=== PATIENT | female | born 1955 | race Caucasian/White ===

== ENCOUNTER 2017-03-13 00:35 | Observation (INO) | payer MEDICAID, OTHER ==
--- NOTE | 2017-03-13 01:22 | ED PDOC ---
Arrival/HPI - General Chief Complaint: Syncope Time Seen by Provider: 03/13/17 01:15 Historian: Patient - History of Present Illness Narrative History of Present Illness (Text): 03/13/17 01:21 Hannah Hopson is a 61 year old female, whose past medical history includes hypertension, who presents to the ED brought in by EMS accompanied by family status post syncopal episode tonight. Patient states prior to arrival she went to bathroom, felt dizzy, and had a syncopal episode. Patient notes earlier tonight she felt nauseous with 1 episode of vomiting after eating shrimp for dinner. Patient complaining of headache currently. Patient denies any fever, chills, chest pain, shortness of breath, abdominal pain, diarrhea, urinary symptoms, back pain, neck pain, head trauma, or any other complaints. Time/Duration: Other (tonight) Symptom Onset: Gradual Activities at Onset: Rest, Light Context: Home Past Medical History - Provider Review Nursing Documentation Reviewed: Yes - Past History Past History: No Previous - Infectious Disease Hx of Infectious Diseases: None - Tetanus Immunization Tetanus Immunization: Unknown - Cardiac Hx Hypertension: Yes - Psychiatric Hx Depression: No Hx Emotional Abuse: No Hx Physical Abuse: No Hx Substance Use: No - Surgical History Hx Hysterectomy: Yes - Suicidal Assessment Feels Threatened In Home Enviroment: No Family/Social History - Physician Review Nursing Documentation Reviewed: Yes Family/Social History: No Known Family HX Smoking Status: n Hx Alcohol Use: No Hx Substance Use: No Hx Substance Use Treatment: No Allergies/Home Meds Allergies/Adverse Reactions: Allergies No Known Allergies Allergy (Verified 12/19/12 10:29) Home Medications: Home Meds Medication Instructions Recorded Confirmed hydroCHLOROthiazide [Microzide] 12.5 mg PO DAILY 12/19/12 03/13/17 Atorvastatin [Lipitor] 1 tab PO HS 03/13/17 03/13/17 Lisinopril [Zestril] 1 tab PO DAILY 03/13/17 03/13/17 Review of Systems - Physician Review All systems were reviewed & negative as marked: Yes - Review of Systems Constitutional: Normal. absent: Fevers Eyes: Normal ENT: Normal Respiratory: Normal. absent: SOB, Cough Cardiovascular: Syncope. absent: Chest Pain Gastrointestinal: Abdominal Pain, Nausea, Vomiting Genitourinary Female: Normal. absent: Dysuria, Frequency, Hematuria, Urine Output Changes Musculoskeletal: Normal. absent: Back Pain, Neck Pain Skin: Normal. absent: Rash Neurological: Dizziness. absent: Headache Endocrine: Normal Hemo/Lymphatic: Normal Psychiatric: Normal Physical Exam Vital Signs Reviewed: Yes Vital Signs Temp Pulse Resp BP Pulse Ox 03/13/17 01:07 97.3 F L 03/13/17 00:54 70 18 115/67 95 Temperature: Afebrile Blood Pressure: Normal Pulse: Regular Respiratory Rate: Normal Appearance: Positive for: Well-Appearing, Non-Toxic, Comfortable Pain Distress: None Mental Status: Positive for: Alert and Oriented X 3 - Systems Exam Head: Present: Atraumatic, Normocephalic Pupils: Present: PERRL Extroacular Muscles: Present: EOMI Conjunctiva: Present: Normal Mouth: Present: Moist Mucous Membranes Neck: Present: Normal Range of Motion Respiratory/Chest: Present: Clear to Auscultation, Good Air Exchange. No: Respiratory Distress, Accessory Muscle Use Cardiovascular: Present: Regular Rate and Rhythm, Normal S1, S2. No: Murmurs Abdomen: Present: Normal Bowel Sounds. No: Tenderness, Distention, Peritoneal Signs Back: Present: Normal Inspection Upper Extremity: Present: Normal Inspection. No: Cyanosis, Edema Lower Extremity: Present: Normal Inspection. No: Edema Neurological: Present: GCS=15, CN II-XII Intact, Speech Normal Skin: Present: Warm, Dry, Normal Color. No: Rashes Psychiatric: Present: Alert, Oriented x 3, Normal Insight, Normal Concentration Medical Decision Making ED Course and Treatment: 03/13/17 01:22 Impression: 61 y/o female presents s/p syncopal episode. Pt c/o dizziness, headache, nausea and vomiting. Differential Diagnosis included but are not limited to: syncope Plan: -- CT Head w/o contrast -- EKG -- CXR -- Labs, cardiac enzymes, lipase -- IV fluids -- Zofran -- Reassess and disposition Reviewed EKG, NSR at 74 bpm. Prolonged QT. Non-specific ST/T wave changes. 03/13/17 03:12 reviewed radiology, CXR shows: There is a retrocardiac opacity which may represent a large hiatal hernia. Other possibilities are not excluded. Correlation with prior examination recommended. CT Head shows: No evidence of acute intracranial hemorrhage. No midline shift or hydrocephalus.If symptoms persist, correlation with MRI is advised. 03/13/17 04:07 Case discussed with medical administrative specialist paraprofessional interpreter, who is aware and agrees with plan. House physician paged. 03/13/17 04:[address] Natasha Alvarado, who is aware and agrees with plan. Accepts pt in to hospitalist service. Pt will go to Telemetry observation for syncope. - Lab Interpretations Lab Results: 03/13/17 02:02 03/13/17 02:02 Lab Results 03/13/17 02:02: WBC 11.4 H, RBC 4.83, Hgb 14.6, Hct 44.0, MCV 91.1, MCH 30.2, MCHC 33.2, RDW 12.8, Plt Count 290, MPV 10.2 03/13/17 02:02: Sodium 140, Potassium 3.3 L, Chloride 102, Carbon Dioxide 26, Anion Gap 15, BUN 16, Creatinine 0.9, Est GFR ( Amer) > 60, Est GFR (Non- Af Amer) > 60, Random Glucose 166 H, Calcium 9.2, Total Bilirubin 0.5, AST 42 H , ALT 49, Alkaline Phosphatase 112, Lactate Dehydrogenase 525, Total Creatine Kinase 168, Troponin I 0.02, Total Protein 8.0, Albumin 4.3, Globulin 3.7, Albumin/Globulin Ratio 1.2, Lipase 249 03/13/17 02:02: PT 10.7, INR 0.99, APTT 24.2 I have reviewed the lab results: Yes - RAD Interpretation Narrative RAD Interpretations (Text): CXR shows: Lungs: There is a retrocardiac opacity which may represent a large hiatal hernia. Other possibilities are not excluded. Pleural space: Unremarkable. No pneumothorax. Heart: Unremarkable. No cardiomegaly. Mediastinum: Unremarkable. Bones/joints: Unremarkable. IMPRESSION: There is a retrocardiac opacity which may represent a large hiatal hernia. Other possibilities are not excluded. Correlation with prior examination recommended. CT Head shows: Brain: Unremarkable. No hemorrhage. No significant white matter disease. No edema. Ventricles: Unremarkable. No ventriculomegaly. Bones/joints: Unremarkable. No acute fracture. Soft tissues: Unremarkable. Sinuses: Unremarkable as visualized. No acute sinusitis. Mastoid air cells: Unremarkable as visualized. No mastoid effusion. IMPRESSION: No evidence of acute intracranial hemorrhage. No midline shift or hydrocephalus.If symptoms persist, correlation with MRI is advised. Radiology Orders: 03/13/17 01:24 HEAD W/O CONTRAST [CT] Stat CHEST PORTABLE [RAD] Stat Electric Screw Driver Operator: ED Physician, Radiologist - EKG Interpretation Interpreted by ED Physician: Yes Type: 12 lead EKG - Medication Orders Current Medication Orders: Discontinued Medications Sodium Chloride (Sodium Chloride 0.9%) 1,000 mls @ 999 mls/hr IV .Q1H1M STA Stop: 03/13/17 02:25 Last Admin: 03/13/17 03:16 Dose: 999 mls/hr Ondansetron HCl (Zofran Inj) 4 mg IVP ONCE ONE Stop: 03/13/17 01:26 Last Admin: 03/13/17 03:16 Dose: 4 mg - Scribe Statement The provider has reviewed the documentation as recorded by the Anjali Doshi Provider Attestation: All medical record entries made by the Anjali were at my direction and personally dictated by me. I have reviewed the chart and agree that the record accurately reflects my personal performance of the history, physical exam, medical decision making, and the department course for this patient. I have also personally directed, reviewed, and agree with the discharge instructions and disposition. Disposition/Present on Arrival - Present on Arrival Any Indicators Present on Arrival: No History of DVT/PE: No History of Uncontrolled Diabetes: No Urinary Catheter: No History of Decub. Ulcer: No History Surgical Site Infection Following: None - Disposition Have Diagnosis and Disposition been Completed?: Yes Diagnosis: Syncope Disposition: HOSPITALIZED Disposition Time: 04:29 Patient Plan: Observation Patient Problems: Current Active Problems Problem Status Onset Syncope Acute Condition: STABLE
[2017-03-13] MEDS ORDERED: Sodium Chloride 0.9% 1,000 ML IV STA (01:25)
[2017-03-13 02:18] LABS: MEAN CELL VOLUME 91.1 fL (80.0-105.0); MEAN CORPUSCULAR HEMOGLOBIN 30.2 pg (25.0-35.0); MEAN CORPUSCULAR HGB CONC 33.2 g/dl (31.0-37.0); MEAN PLATELET VOLUME 10.2 fl (7.0-11.0); RED CELL DISTRIBUTION WIDTH 12.8 % (11.5-14.5); WHITE BLOOD COUNT 11.4 10^3/ul (4.5-11.0)
[2017-03-13 02:25] LABS: INR 0.99 (0.93-1.08); PARTIAL THROMBOPLASTIN TIME 24.2 Seconds (23.7-30.8)
[2017-03-13 02:30] LABS: ALB/GLOB RATIO 1.2 (1.1-1.8); ALKALINE PHOSPHATASE 112 U/L (38-133); ALT/SGPT 49 U/L (7-56); AST/SGOT 42 U/L (15-39); BILIRUBIN,TOTAL 0.5 mg/dL (0.2-1.3); BLOOD UREA NITROGEN 16 mg/dL (7-21); CALCIUM 9.2 mg/dL (8.4-10.5); CARBON DIOXIDE 26 mmol/L (21-33); CHLORIDE 102 mmol/L (98-107); GFR AFRICAN-AMERICAN > 60; GLUCOSE,RANDOM 166 mg/dL (70-110); LIPASE 249 U/L (23-300); POTASSIUM 3.3 mmol/L (3.6-5.0); SODIUM 140 mmol/L (132-148)
[2017-03-13 02:40] LABS: TROPONIN I 0.02 ng/mL
[2017-03-13] MEDS ORDERED: Potassium Chloride 20 mEq ER Tab PO STA (05:23)
--- NOTE | 2017-03-13 05:32 | CP.PCM.HP ---
History of Present Illness - History of Present Illness History of Present Illness: 61 year old female with past medical history of hypertension presents to [facility] after having syncope at home. Patient reports today around 6pm she starting feeling dizziness as if the room was spinning and chest tightness. She went to the bathroom to have a bowel movement. The dizziness became worse after she stood up from the toilet trying to walk back to her bed. Patient returned to the toilet and syncoped while sitting. Patient's witnessed the episode and denies of any trauma or seizure like activities. Patient reports feeling nauseous after having shrimps and salmon at a restaurant. Patient denies having headache, weakness, fever, chills, shortness of breath, chest pain abdominal pain, nausea, vomiting, diarrhea, or urinary symptoms. Dr. Hawley PMHx: HTN PSHx: hysterectomy Allergy: NKDA Social Hx: admits to social alcohol use, denies tobacco or other drug use Family Hx: non contributory Meds: lisinopril, HCTZ, lipitor Present on Admission - Present on Admission Any Indicators Present on Admission: No History of DVT/PE: No History of Uncontrolled Diabetes: No Review of Systems - Constitutional Constitutional: As Per HPI. absent: Chills, Fever, Headache - EENT Eyes: As Per HPI. absent: Change in Vision, Loss of Vision Ears: As Per HPI, Dizziness Nose/Mouth/Throat: As Per HPI. absent: Nasal Trauma, Dysphagia - Cardiovascular Cardiovascular: As Per HPI, Syncope. absent: Chest Pain, Chest Pain at Rest, Chest Pain with Activity, Edema - Respiratory Respiratory: As Per HPI. absent: Cough, Dyspnea, Wheezing - Gastrointestinal Gastrointestinal: As Per HPI, Nausea. absent: Constipation, Loose Stools, Vomiting - Genitourinary Genitourinary: As Per HPI. absent: Urinary Frequency, Urinary Hesitance, Urinary Urgency - Musculoskeletal Musculoskeletal: As Per HPI. absent: Arthralgias, Myalgias - Integumentary Integumentary: As Per HPI. absent: Acne, Erythema, Hirsutism - Neurological Neurological: As Per HPI, Dizziness, Syncope. absent: Numbness, Tingling - Psychiatric Psychiatric: As Per HPI. absent: Confusion, Irritability - Endocrine Endocrine: As Per HPI - Hematologic/Lymphatic Hematologic: As Per HPI Past Patient History - Infectious Disease Hx of Infectious Diseases: None - Tetanus Immunizations Tetanus Immunization: Unknown - Past Social History Smoking Status: n - CARDIAC Hx Hypertension: Yes - PSYCHIATRIC Hx Depression: No Hx Emotional Abuse: No Hx Physical Abuse: No Hx Substance Use: No - SURGICAL HISTORY Hx Hysterectomy: Yes Meds Allergies/Adverse Reactions: Allergies Allergy/AdvReac Type Severity Reaction Status Date / Time No Known Allergies Allergy Verified 12/19/12 10:29 Physical Exam - Constitutional Appears: Non-toxic, No Acute Distress - Head Exam Head Exam: ATRAUMATIC, NORMAL INSPECTION, NORMOCEPHALIC - Eye Exam Eye Exam: EOMI, Normal appearance, PERRL - ENT Exam ENT Exam: Mucous Membranes Moist - Neck Exam Neck exam: Positive for: Normal Inspection - Respiratory Exam Respiratory Exam: Clear to Auscultation Bilateral, NORMAL BREATHING PATTERN. absent: Rhonchi, Wheezes, Respiratory Distress - Cardiovascular Exam Cardiovascular Exam: REGULAR RHYTHM, RRR, +S1, +S2 - GI/Abdominal Exam GI & Abdominal Exam: Normal Bowel Sounds, Soft. absent: Tenderness - Extremities Exam Extremities exam: Positive for: normal capillary refill, normal inspection, pedal pulses present. Negative for: pedal edema - Back Exam Back exam: NORMAL INSPECTION - Neurological Exam Neurological exam: Alert, Normal Gait, Oriented x3 - Psychiatric Exam Psychiatric exam: Normal Affect, Normal Mood - Skin Skin Exam: Dry, Intact, Normal Color, Warm Results - Vital Signs Recent Vital Signs: Last Vital Signs Temp 97.3 F L 03/13/17 01:07 Pulse 70 03/13/17 00:54 Resp 18 03/13/17 00:54 BP 115/67 03/13/17 00:54 Pulse Ox 95 03/13/17 00:54 - Labs Result Diagrams: 03/13/17 02:02 03/13/17 02:02 Labs: Laboratory Results - last 24 hr 03/13/17 03/13/17 03/13/17 02:02 02:02 02:02 WBC 11.4 H RBC 4.83 Hgb 14.6 Hct 44.0 MCV 91.1 MCH 30.2 MCHC 33.2 RDW 12.8 Plt Count 290 MPV 10.2 PT 10.7 INR 0.99 APTT 24.2 Sodium 140 Potassium 3.3 L Chloride 102 Carbon Dioxide 26 Anion Gap 15 BUN 16 Creatinine 0.9 Est GFR ( Amer) > 60 Est GFR (Non-Af Amer) > 60 Random Glucose 166 H Calcium 9.2 Total Bilirubin 0.5 AST 42 H ALT 49 Alkaline Phosphatase 112 Lactate Dehydrogenase 525 Total Creatine Kinase 168 Troponin I 0.02 Total Protein 8.0 Albumin 4.3 Globulin 3.7 Albumin/Globulin Ratio 1.2 Lipase 249 Assessment & Plan - Assessment and Plan (Free Text) Assessment: 61 year old female with past medical history of hypertension presents after having syncope at home Plan: Syncope -vasovagal vs cardiogenic etiology -Vitals and labs are unremarkable -Follow up orthostatic blood pressure -First troponin 0.02, repeats pending -CT Head showed no evidence of acute intracranial hemorrhage. No midline shift or hydrocephalus -EKG showed NSR at 74 bpm. Prolonged QT. Non-specific ST/T wave changes -Cardiology consult, Dr. Weller help appreciated Hiatal hernia -CXR: There is a retrocardiac opacity which may represent a large hiatal hernia. Other possibilities are not excluded. Correlation with prior examination recommended -GI consult, Dr. Joseph help appreciated Hypokalemia -Potassium 3.3 in the ED -Follow up AM Lab -Supplement as needed HTN -Resume home HCTZ and Lisinopril HLD -Resume lipitor Prophylactic measures -Protonix -SCD -Zofran
--- NOTE | 2017-03-13 06:33 | CT ---
PROCEDURE: CT HEAD WITHOUT CONTRAST. HISTORY: syncope COMPARISON: None available. TECHNIQUE: Axial computed tomography images were obtained through the head/brain without intravenous contrast. Radiation dose: Total exam DLP = 722.11 mGy-cm. This CT exam was performed using one or more of the following dose reduction techniques: Automated exposure control, adjustment of the mA and/or kV according to patient size, and/or use of iterative reconstruction technique. FINDINGS: HEMORRHAGE: No intracranial hemorrhage. BRAIN: No mass effect or edema. Mild chronic periventricular white matter microvascular ischemic changes. VENTRICLES: Unremarkable. No hydrocephalus. CALVARIUM: Unremarkable. PARANASAL SINUSES: Unremarkable as visualized. No significant inflammatory changes. MASTOID AIR CELLS: Unremarkable as visualized. No inflammatory changes. OTHER FINDINGS: None. IMPRESSION: Mild chronic periventricular white matter microvascular ischemic changes.
--- NOTE | 2017-03-13 06:55 | RAD ---
HISTORY: syncope COMPARISON: 04/30/2014 FINDINGS: LUNGS: Mild right basilar atelectasis and mild elevation right hemidiaphragm PLEURA: No significant pleural effusion identified, no pneumothorax apparent. CARDIOVASCULAR: Normal. OSSEOUS STRUCTURES: No significant abnormalities. VISUALIZED UPPER ABDOMEN: OTHER FINDINGS: Small to medium size hiatal hernia IMPRESSION: Mild right basilar atelectasis with mild elevation right hemidiaphragm ; rule out eventration Small to medium size hiatal hernia
[2017-03-13 08:28] LABS: TROPONIN I 0.07 ng/mL
[2017-03-13] MEDS ORDERED: Potassium Chloride 20 mEq ER Tab PO ONE (10:00)
--- NOTE | 2017-03-13 10:05 | CON ---
DATE: 03/13/2017 INDICATIONS: Syncope. This is a 61-year-old hypertensive woman admitted through the Emergency Room last night with a syncopal spell. During the day, she participated in mandaen services, had a massage, and went out for dinner. During the evening when she was at home, she began feeling dizzy and lightheaded. She lay down. She had a bowel movement. She passed out in the bathroom. She did not fall and injure herself. Her was present. There was no chest pain, shortness of breath , or palpitations. There was no seizure activity or incontinence. There was no orthopnea, PND, prior syncope, edema, claudication, fever, chills, cough, sputum production, hemoptysis, abdominal pain, nausea, vomiting, diarrhea, constipation, or melena. PAST MEDICAL HISTORY: Notable for hypertension and a hysterectomy. In the record, there is an echocardiogram dated from 12/2015. LV function was normal at that time. There is no history of rheumatic fever, myocardial infarction, angina, arrhythmia, diabetes, stroke, TIA, or gout. MEDICATIONS: At the time of admission include lisinopril, hydrochlorothiazide, and Lipitor. ALLERGIES: There are no medication allergies. SOCIAL HISTORY: She lives at home. She is ambulatory. She does not smoke. She uses alcohol on infrequent social occasions. FAMILY HISTORY: Noncontributory. REVIEW OF SYSTEMS: Ten-point review of systems is otherwise unremarkable except as noted above. PHYSICAL EXAMINATION: GENERAL: She is a well-developed woman lying in bed on telemetry in no acute distress. VITAL SIGNS: She is in sinus rhythm at 70 beats per minute. She is afebrile. Blood pressure 118/72, respirations 18, O2 sat 95-99% on nasal cannula and room air. HEENT: Reveals no neck vein distention, thyromegaly, or carotid bruits. Mucous membranes are moist. Conjunctivae are pink. NECK: Supple. LUNGS: Lung carranza are clear. HEART: Revealed normal first and second heart sounds without murmur, gallop, rub, or click. ABDOMEN: Soft. Bowel sounds are present. No mass, organomegaly, tenderness, rebound, or guarding. No CVA tenderness. No palpable abdominal aortic aneurysm. EXTREMITIES: Revealed no cyanosis, clubbing, or edema. NEUROLOGIC: She is awake, alert, and oriented. SKIN: Warm and dry. No rash or cellulitis. LABORATORY AND IMAGING: A chest x-ray reveals mild right basilar atelectasis with mild elevation of a right hemidiaphragm. The EKG is not yet available. Apparently, it was unremarkable. I will review it. Electrolytes are notable for potassium of 3.3, creatinine 0.9, BUN 16, blood sugar 166. LFTs, mild abnormality with an AST of 42, creatinine normal x 2, troponin 0.02 and 0.07. Total cholesterol 106, LDL 64, HDL 36, triglycerides 37 , lipase 249. IMPRESSION: The patient is a 61-year-old woman with a syncopal episode, possibly related to food ingestion at a restaurant earlier in the day. Symptoms have resolved. She feels well this morning. She is receiving potassium replacement. I would check her postural vital signs. An echocardiogram was done last year. It does not need to be repeated at this time. She can be out of bed. She is being seen by Dr. Joseph as well. I would anticipate early discharge unless symptoms are recurrent in the hospital. She can be considered for nuclear stress testing on an outpatient basis. Since she is being given hydrochlorothiazide for hypertension and was hypokalemic on admission, she should be considered for oral potassium replacement or an alternative antihypertensive. Kiran Weller MD cc: [id number] TT: 03/13/2017 10:04:43 Confirmation # [id number] Dictation # [id number] MTDD
[2017-03-13] MEDS: Sodium Chloride 0.9% 1,000 ML IV SCH (10:19)
[2017-03-13] MEDS: Pantoprazole 40 mg EC Tab PO SCH (10:47)
[2017-03-13 11:15] VITALS: BMI 30.1
--- NOTE | 2017-03-13 12:36 | CARD ---
APPROVED REPORT EKG Measurement Heart [id number] <Conclusion> Normal sinus rhythm Prolonged QT Abnormal ECG
[2017-03-13 14:16] LABS: BLOOD UREA NITROGEN 10 mg/dL (7-21); CALCIUM 9.5 mg/dL (8.4-10.5); CARBON DIOXIDE 27 mmol/L (21-33); CHLORIDE 108 mmol/L (98-107); GFR AFRICAN-AMERICAN > 60; GLUCOSE,RANDOM 116 mg/dL (70-110); POTASSIUM 4.4 mmol/L (3.6-5.0); SODIUM 141 mmol/L (132-148)
[2017-03-13 14:28] LABS: TROPONIN I 0.03 ng/mL
--- NOTE | 2017-03-13 19:50 | CON ---
DATE: 03/13/2017 REQUESTING PHYSICIAN: Dr. Ying. REASON FOR CONSULTATION: I have been asked to see this 61-year-old female who comes to the hospital with dizziness and chest pain. The patient apparently became dizzy after having a bowel movement. T he patient apparently had a syncopal episode shortly thereafter. She has a history of hypertension. The patient also admits to occasional reflux. Reason for consultation was for a finding of a retroc ardiac abnormality consistent with a hiatal hernia. PAST MEDICAL HISTORY: Is notable for hypertension. PAST SURGICAL HISTORY: Is notable for a hysterectomy. SOCIAL HISTORY: She denied cigarette smoking or alcohol use. REVIEW OF SYSTEMS: A 14-point review of systems is notable for dizziness, syncope, chest pain, and G ERD. PHYSICAL EXAMINATION: GENERAL: Well-developed female lying in bed, in no acute distress. VITAL SIGNS: Reveal temperature of 98.4, blood pressure 127/75, heart rate 64. HEENT: Reveals sclerae to be white, conjunctivae pink. NECK: Supple. CHEST: Lungs are clear. HEART: Reveals regular rate and rhythm. ABDOMEN: Soft, nontender. EXTREMITIES: Show no edema. LABORATORY DATA: Reveal white blood cell count 11.4, hemoglobin 14.6. Chemistries revealed normal e lectrolytes. Troponins are negative. IMPRESSION: A 61-year-old female with syncope, dizziness, chest pain with a hiatal hernia on chest x -ray and occasionally symptomatic gastroesophageal reflux disease. RECOMMENDATIONS: 1. Continue PPI. 2. The patient can have an elective endoscopy as an outpatient if reflux persists. Reggie Joseph MD cc: [id number] TT: 03/13/2017 19:49:56 Confirmation # [id number] Dictation # [id number]
[2017-03-14] MEDS: Sodium Chloride 0.9% 1,000 ML IV SCH
[2017-03-14 06:14] VITALS: O2SAT 96
[2017-03-14] MEDS: Pantoprazole 40 mg EC Tab PO SCH (06:46)
[2017-03-14 08:34] LABS: ADD MANUAL DIFF? NO
--- NOTE | 2017-03-14 08:40 | CP.PCM.PN ---
Subjective - Date & Time of Evaluation Date of Evaluation: 03/14/17 Time of Evaluation: 07:00 - Subjective Subjective: Stable on 2R. She feels well. No chest pain or dizziness. No further syncope. V/S stable. Postural V/S noted: no postural hypotension PE: Lungs: clear Cor.: S1S2 Abd.: soft Ext.: no edema Neuro.; alert Labs noted: K+= 4.4, trop.= 0.03 Objective - Vital Signs/Intake and Output Vital Signs (last 24 hours): Temp Pulse Resp BP Pulse Ox 98.2 F 59 L 18 129/84 96 03/14/17 06:00 03/14/17 06:00 03/14/17 06:00 03/14/17 06:00 03/14/17 06:00 Intake and Output: 03/14/17 03/14/17 06:59 18:59 Intake Total 240 Output Total 400 Balance -160 - Medications Medications: Current Medications Atorvastatin Calcium (Lipitor) 20 mg PO HS [facility] Last Admin: 03/13/17 21:01 Dose: 20 mg Hydrochlorothiazide (Microzide) 12.5 mg PO DAILY [facility] Last Admin: 03/13/17 10:46 Dose: 12.5 mg Sodium Chloride (Sodium Chloride 0.9%) 1,000 mls @ 100 mls/hr IV .Q10H [facility] Last Admin: 03/14/17 00:00 Dose: 100 mls/hr Lisinopril (Zestril) 20 mg PO DAILY [facility] Last Admin: 03/13/17 10:46 Dose: 20 mg Ondansetron HCl (Zofran Inj) 4 mg IVP Q4 PRN PRN Reason: Nausea/Vomiting Pantoprazole Sodium (Protonix Ec Tab) 40 mg PO 0630 [facility] Last Admin: 03/14/17 06:46 Dose: 40 mg - Labs Labs: 03/13/17 13:00 PT 10.7 Seconds (9.9-11.8) 03/13/17 02:02 INR 0.99 (0.93-1.08) 03/13/17 02:02 APTT 24.2 Seconds (23.7-30.8) 03/13/17 02:02 Assessment and Plan - Assessment and Plan (Free Text) Plan: Assessment: Syncope/vasovagal spell, possible food related Hypokalemia HBP S/P hysterectomy GERD Plan: OOB/ambulate OK to D/C home with medical F/U (Nubia) Out-pt nuclear stress test Pt to report any further dizziness/syncope>additional evaluation at that time PO KCL.
[2017-03-14 08:45] LABS: BASO # 0.03 K/mm3 (0.0-2.0); BASO % 0.3 % (0.0-3.0); EOS # 0.5 (0.0-0.7); EOS % 5.2 % (1.5-5.0); GRAN # 5.14 (1.4-6.5); GRAN % 50.2 % (50.0-68.0); HEMATOCRIT 40.7 % (36.0-48.0); LYMPH # 3.9 (1.2-3.4); LYMPH % 38.3 % (22.0-35.0); MEAN CELL VOLUME 91.1 fL (80.0-105.0); MEAN CORPUSCULAR HEMOGLOBIN 30.2 pg (25.0-35.0); MEAN CORPUSCULAR HGB CONC 33.2 g/dl (31.0-37.0); MONO # 0.6 (0.1-0.6); PLATELET COUNT 287 10^3/uL (120.0-450.0); WHITE BLOOD COUNT 10.2 10^3/ul (4.5-11.0)
[2017-03-14 08:55] LABS: BLOOD UREA NITROGEN 13 mg/dL (7-21); CALCIUM 9.5 mg/dL (8.4-10.5); CARBON DIOXIDE 24 mmol/L (21-33); CHLORIDE 108 mmol/L (95-110); GFR AFRICAN-AMERICAN > 60; GLUCOSE,RANDOM 108 mg/dL (70-110); POTASSIUM 4.1 mmol/L (3.6-5.0); SODIUM 141 mmol/L (132-148)
[2017-03-14 12:38] VITALS: BP 120/76; RESP 20; TEMP 97.3
[2017-03-14 14:17] VITALS: PULSE 101
--- NOTE | 2017-03-14 15:58 | CP.PCM.DIS ---
<David Chase - Last Filed: 03/14/17 18:18> Provider - Provider Date of Admission: 03/13/17 04:26 Attending physician: Main Ying MD Primary care physician: NANCY: Nubia Consults: Cardio: Elkind GI: Protonix Time Spent in preparation of Discharge (in minutes): 45 Hospital Course - Lab Results Lab Results: Most Recent Lab Values WBC 10.2 10^3/ul (4.5-11.0) 03/14/17 08:20 RBC 4.47 10^6/uL (3.5-6.1) 03/14/17 08:20 Hgb 13.5 gm/dL (12.0-16.0) 03/14/17 08:20 Hct 40.7 % (36.0-48.0) 03/14/17 08:20 MCV 91.1 fL (80.0-105.0) 03/14/17 08:20 MCH 30.2 pg (25.0-35.0) 03/14/17 08:20 MCHC 33.2 g/dl (31.0-37.0) 03/14/17 08:20 RDW 13.0 % (11.5-14.5) 03/14/17 08:20 Plt Count 287 10^3/uL (120.0-450.0) 03/14/17 08:20 MPV 10.0 fl (7.0-11.0) 03/14/17 08:20 Gran % 50.2 % (50.0-68.0) 03/14/17 08:20 Lymph % (Auto) 38.3 % (22.0-35.0) H 03/14/17 08:20 [place] % (Auto) 6.0 % (1.0-6.0) 03/14/17 08:20 Eos % (Auto) 5.2 % (1.5-5.0) H 03/14/17 08:20 Baso % (Auto) 0.3 % (0.0-3.0) 03/14/17 08:20 Gran # 5.14 (1.4-6.5) 03/14/17 08:20 Lymph # 3.9 (1.2-3.4) H 03/14/17 08:20 [place] # 0.6 (0.1-0.6) 03/14/17 08:20 Eos # 0.5 (0.0-0.7) 03/14/17 08:20 Baso # 0.03 K/mm3 (0.0-2.0) 03/14/17 08:20 PT 10.7 Seconds (9.9-11.8) 03/13/17 02:02 INR 0.99 (0.93-1.08) 03/13/17 02:02 APTT 24.2 Seconds (23.7-30.8) 03/13/17 02:02 Sodium 141 mmol/L (132-148) 03/14/17 08:20 Potassium 4.1 mmol/L (3.6-5.0) 03/14/17 08:20 Chloride 108 mmol/L (95-110) 03/14/17 08:20 Carbon Dioxide 24 mmol/L (21-33) 03/14/17 08:20 Anion Gap 13 (10-20) 03/14/17 08:20 BUN 13 mg/dL (7-21) 03/14/17 08:20 Creatinine 0.8 mg/dL (0.5-1.4) 03/14/17 08:20 Est GFR ( Amer) > 60 03/14/17 08:20 Est GFR (Non-Af Amer) > 60 03/14/17 08:20 Random Glucose 108 mg/dL (70-110) 03/14/17 08:20 Calcium 9.5 mg/dL (8.4-10.5) 03/14/17 08:20 Total Bilirubin 0.5 mg/dL (0.2-1.3) 03/13/17 02:02 AST 42 U/L (15-39) H 03/13/17 02:02 ALT 49 U/L (7-56) 03/13/17 02:02 Alkaline Phosphatase 112 U/L (38-133) 03/13/17 02:02 Lactate Dehydrogenase 409 U/L (333-699) 03/13/17 13:00 Total Creatine Kinase 151 U/L (35-230) 03/13/17 13:00 Troponin I 0.03 ng/mL D 03/13/17 13:00 Total Protein 8.0 g/dL (5.8-8.3) 03/13/17 02:02 Albumin 4.3 g/dL (3.0-4.8) 03/13/17 02:02 Globulin 3.7 gm/dL 03/13/17 02:02 Albumin/Globulin Ratio 1.2 (1.1-1.8) 03/13/17 02:02 Triglycerides 37 mg/dL (35-160) 03/13/17 08:00 Cholesterol 106 mg/dL (130-200) L 03/13/17 08:00 LDL Cholesterol Direct 64 mg/dL (0-129) 03/13/17 08:00 HDL Cholesterol 36 mg/dL (29-60) 03/13/17 08:00 Lipase 249 U/L (23-300) 03/13/17 02:02 - Hospital Course Hospital Course: Upon Admission: 61yo F with PMHx of HTN here for evaluation of syncope. She was at home using the restroom when her witnessed her passing out. Denies any trauma or signs of seizure. CT head in the ER was negative for any acute changes. CXR revealed a hiatal hernia. Patient's orthostatics were negative the following morning. Started on IVF. Troponins were negative and ACS ruled out. Recent ECHO with preserved ejection fraction. No EKG changes. Patient's symptoms resolved. Cardiology was consulted who recommended out-patient stress test. Patient reports using Lisinopril and ?HCTZ? at home, however, we were unable to confirm this medication by the pharmacy. Patient's was found to be mildly hypokalemic which was replaced. GI evaluation was requested and the patient was recommended to start a PPI and have an elective out-patient EGD for further evaluation if she had continued symptoms due to the hiatal hernia. Patient was recommended to continue home HTN meds and follow up as out-patient for repeat labs in 2-3 days. Discussed plan in detail with the patient who understands and agrees with plan. Patient was cleared for discharge. 1. Syncope; likely vasovagal. out-patient nuclear stress test. 2. Hx of HTN; continue home meds. close out-patient follow up. 3. Hiatal hernia; PPI prescribed Upon Discharge: Patient is cleared for discharge as per Dr. Ying 1. Follow up with your Primary care physician within 2-3 days. Or follow up with [facility] [place] clinic, call for appointment 2. Repeat labs with Primary Care Physician in 2-3 days 3. Resume home meds 4. Recommend nuclear stress test as out-patient. Call for appointment 5. Return to the ER with any concerning symptoms New prescription: Protonix 40mg PO Daily #30/0 Patient requested and given pneumococcal vaccine. Discharge Exam - Head Exam Head Exam: ATRAUMATIC, NORMAL INSPECTION, NORMOCEPHALIC - Eye Exam Eye Exam: EOMI, Normal appearance, PERRL. absent: Scleral icterus Pupil Exam: PERRL - ENT Exam ENT Exam: Mucous Membranes Moist - Respiratory Exam Respiratory Exam: Clear to PA & Lateral, NORMAL BREATHING PATTERN, UNREMARKABLE. absent: Accessory Muscle Use, Rhonchi, Wheezes - Cardiovascular Exam Cardiovascular Exam: RRR, +S1, +S2. absent: JVD - GI/Abdominal Exam GI & Abdominal Exam: Soft. absent: Distended, Firm, Rigid, Tenderness - Extremities Exam Extremities exam: normal inspection - Back Exam Back exam: NORMAL INSPECTION - Neurological Exam Neurological exam: Alert, Oriented x3 - Psychiatric Exam Psychiatric exam: Normal Affect, Normal Mood - Skin Skin Exam: Dry, Intact, Normal Color, Warm Discharge Plan - Discharge Medications Prescriptions: Pantoprazole [Protonix EC Tab] 40 mg PO DAILY #30 ect - Follow Up Plan Condition: STABLE Disposition: HOME/ ROUTINE Instructions: Syncope (GEN) Additional Instructions: Patient is cleared for discharge as per Dr. Ying 1. Follow up with your Primary care physician within 2-3 days. Or follow up with [facility] clinic, call for appointment 2. Repeat labs with Primary Care Physician in 2-3 days 3. Resume home meds 4. Recommend nuclear stress test as out-patient. Call for appointment 5. Return to the ER with any concerning symptoms New prescription: Protonix 40mg PO Daily #30/0 Patient requested and given pneumococcal vaccine. Referrals: [facility] at [facility] [Outside] Kiran Weller MD [Staff Provider] - <Main Ying - Last Filed: 03/15/17 07:47> Provider - Provider Date of Admission: 03/13/17 04:26 Attending physician: Main Ying MD Hospital Course - Lab Results Lab Results: Most Recent Lab Values WBC 10.2 10^3/ul (4.5-11.0) 03/14/17 08:20 RBC 4.47 10^6/uL (3.5-6.1) 03/14/17 08:20 Hgb 13.5 gm/dL (12.0-16.0) 03/14/17 08:20 Hct 40.7 % (36.0-48.0) 03/14/17 08:20 MCV 91.1 fL (80.0-105.0) 03/14/17 08:20 MCH 30.2 pg (25.0-35.0) 03/14/17 08:20 MCHC 33.2 g/dl (31.0-37.0) 03/14/17 08:20 RDW 13.0 % (11.5-14.5) 03/14/17 08:20 Plt Count 287 10^3/uL (120.0-450.0) 03/14/17 08:20 MPV 10.0 fl (7.0-11.0) 03/14/17 08:20 Gran % 50.2 % (50.0-68.0) 03/14/17 08:20 Lymph % (Auto) 38.3 % (22.0-35.0) H 03/14/17 08:20 [place] % (Auto) 6.0 % (1.0-6.0) 03/14/17 08:20 Eos % (Auto) 5.2 % (1.5-5.0) H 03/14/17 08:20 Baso % (Auto) 0.3 % (0.0-3.0) 03/14/17 08:20 Gran # 5.14 (1.4-6.5) 03/14/17 08:20 Lymph # 3.9 (1.2-3.4) H 03/14/17 08:20 [place] # 0.6 (0.1-0.6) 03/14/17 08:20 Eos # 0.5 (0.0-0.7) 03/14/17 08:20 Baso # 0.03 K/mm3 (0.0-2.0) 03/14/17 08:20 PT 10.7 Seconds (9.9-11.8) 03/13/17 02:02 INR 0.99 (0.93-1.08) 03/13/17 02:02 APTT 24.2 Seconds (23.7-30.8) 03/13/17 02:02 Sodium 141 mmol/L (132-148) 03/14/17 08:20 Potassium 4.1 mmol/L (3.6-5.0) 03/14/17 08:20 Chloride 108 mmol/L (95-110) 03/14/17 08:20 Carbon Dioxide 24 mmol/L (21-33) 03/14/17 08:20 Anion Gap 13 (10-20) 03/14/17 08:20 BUN 13 mg/dL (7-21) 03/14/17 08:20 Creatinine 0.8 mg/dL (0.5-1.4) 03/14/17 08:20 Est GFR ( Amer) > 60 03/14/17 08:20 Est GFR (Non-Af Amer) > 60 03/14/17 08:20 Random Glucose 108 mg/dL (70-110) 03/14/17 08:20 Calcium 9.5 mg/dL (8.4-10.5) 03/14/17 08:20 Total Bilirubin 0.5 mg/dL (0.2-1.3) 03/13/17 02:02 AST 42 U/L (15-39) H 03/13/17 02:02 ALT 49 U/L (7-56) 03/13/17 02:02 Alkaline Phosphatase 112 U/L (38-133) 03/13/17 02:02 Lactate Dehydrogenase 409 U/L (333-699) 03/13/17 13:00 Total Creatine Kinase 151 U/L (35-230) 03/13/17 13:00 Troponin I 0.03 ng/mL D 03/13/17 13:00 Total Protein 8.0 g/dL (5.8-8.3) 03/13/17 02:02 Albumin 4.3 g/dL (3.0-4.8) 03/13/17 02:02 Globulin 3.7 gm/dL 03/13/17 02:02 Albumin/Globulin Ratio 1.2 (1.1-1.8) 03/13/17 02:02 Triglycerides 37 mg/dL (35-160) 03/13/17 08:00 Cholesterol 106 mg/dL (130-200) L 03/13/17 08:00 LDL Cholesterol Direct 64 mg/dL (0-129) 03/13/17 08:00 HDL Cholesterol 36 mg/dL (29-60) 03/13/17 08:00 Lipase 249 U/L (23-300) 03/13/17 02:02 Attending/Attestation - Attestation I have personally seen and examined this patient.: Yes I have fully participated in the care of the patient.: Yes I have reviewed all pertinent clinical information, including history, physical exam and plan: Yes Notes (Text): 03/14/17 61 year old female with past medical history of hypertension who presented with complaint of syncope after coming from the bathroom. Syncope was likely vasovagal. She had CT head which was negative for acute findings. She had a recent echo last year which was reviewed. Orthostatics were negative. She was seen by cardiology who recommended outpatient stress test. She was seen by GI for hiatal hernia and started on protonix. If GERD symptoms persist recommended elective EGD. She was initially hypokalemic which improved after potassium supplementation. Patient is discharged home to follow up with her pmd or at [facility]. Recommend for outpatient stress test. Resume home medication for hypertension and repeat labs in 2-3 days. Main Ying MD Hospitalist.
[2017-03-14] MEDS ORDERED: Pneumococcal 23-Valent Vaccine IM ONE (17:07)
== END 2017-03-14 18:08 | disposition home or self-care (01) ==
LOC: ED 00:35 → ERH 04:26 → 2RNO 06:18
PROVIDERS: ADMIT Internal Medicine; ATTEND Internal Medicine
DX: R55 Syncope and collapse (principal); I10 Essential (primary) hypertension; E87.6 Hypokalemia; K44.9 Diaphragmatic hernia without obstruction or gangrene; K21.9 Gastro-esophageal reflux disease without esophagitis; R42 Dizziness and giddiness; Z23 Encounter for immunization
CPT/HCPCS: 36415; 70450; 71010; 80048; 80053; 80061; 82550; 83615; 83690; 84484; 85025; 85027; 85610; 85730; 90732; 93005; 96361; 96374; 99285; G0009; G0378; J2405; J7040